=== PATIENT | male | born 1960 | race Caucasian/White ===

== ENCOUNTER 2021-05-08 08:06 | Emergency (ER) | payer BC ==
[~2021-05-08] VITALS: Ht 177.8 cm; Wt 90.9 kg
[2021-05-08] MEDS ORDERED: LOSA25TA13 PO (08:25)
[2021-05-08] MEDS ORDERED: CELE40TA PO (08:25)
[2021-05-08] MEDS ORDERED: AMLO1TAB25 PO (08:25)
[2021-05-08] MEDS ORDERED: ISOVUE-370 76% 100ML VIAL As Ordered ONE (09:21)
[2021-05-08 09:27] LABS: BASO # 0.1 10^3/uL (0.0-0.2); EOS # 0.1 10^3/uL (0.0-0.5); EOS % 1.2 % (0.0-3.0); HEMOGLOBIN 17.1 g/dl (13.5-17.5); LYMPH # 1.2 10^3/uL (1.5-5.0); LYMPH % 20.8 % (24.0-44.0); MEAN CORPUSCULAR HEMOGLOBIN 27.8 pg (27.0-33.0); MEAN CORPUSCULAR HGB CONC 33.5 g/dl (32.0-36.5); MEAN CORPUSCULAR VOLUME 82.8 fl (80.0-96.0); MONO # 0.5 10^3/uL (0.0-0.8); MONO % 9.1 % (2.0-8.0); NEUTROPHILS % 67.6 % (36.0-66.0); PLATELET COUNT, AUTOMATED 253 10^3/uL (150-450); RED BLOOD COUNT 6.16 10^6/uL (4.30-6.10); WHITE BLOOD COUNT 5.9 10^3/uL (4.0-10.0)
[2021-05-08 09:48] LABS: BLOOD UREA NITROGEN 14 MG/DL (7-18); CALCIUM LEVEL 9.2 MG/DL (8.5-10.1); CARBON DIOXIDE LEVEL 24 MEQ/L (21-32); CHLORIDE LEVEL 106 MEQ/L (98-107); CREATININE FOR GFR 1.03 MG/DL (0.70-1.30); GLOMERULAR FILTRATION RATE > 60.0 (>56); GLUCOSE, FASTING 129 MG/DL (70-100); POTASSIUM SERUM 4.3 MEQ/L (3.5-5.1); SODIUM LEVEL 139 MEQ/L (136-145)
[2021-05-08] MEDS ORDERED: LORazepam 2 MG/ML VIAL IV STA (10:09)
[2021-05-08 11:12] LABS: RSV AMPLIFICATION NEGATIVE (NEGATIVE)
[2021-05-08] MEDS ORDERED: ASPI81TA26 PO (11:52)
[2021-05-08] MEDS ORDERED: ATOR1TAB21 PO (11:52)
[2021-05-08 12:00] VITALS: BP 162/84
== END 2021-05-08 12:41 | disposition home or self-care (01) ==
LOC: M ED 08:06
DX: F44.4 Conversion disorder with motor symptom or deficit (principal); I77.3 Arterial fibromuscular dysplasia; I67.1 Cerebral aneurysm, nonruptured; I10 Essential (primary) hypertension; F41.9 Anxiety disorder, unspecified; Z79.899 Other long term (current) drug therapy; Z79.82 Long term (current) use of aspirin
CPT/HCPCS: 70450; 70496; 70498; 71045; 80047; 80048; 84484; 85025; 87631; 93005; 93041; 94760; 96374; 99285; J2060; Q9967